=== PATIENT | female | born 1980 | race Caucasian/White ===

== ENCOUNTER → 2022-03-13 | Outpatient (CLI) | payer BC ==
--- NOTE | 2022-03-14 08:07 | MM ---
Reason for Exam: Screening (asymptomatic). Baseline mammogram. Patient History: Menarche at age 14. First Full-Term at age 33. Late child-bearing (after 30). Premenopausal. Patient has history of breast feeding. Last menstrual period: 02/26/2022 Risk Values: Syeda 5 year model risk: 0.8%. NCI Lifetime model risk: 13.5%. Prior Study Comparison: Patient's first Mammogram. Tissue Density: The breast tissue is extremely dense which could obscure a lesion on mammography. Findings: Analyzed By CAD. A few scattered small benign-appearing round calcifications bilaterally. Slightly more prominent loosely grouped small heterogeneous calcifications in the middle to posterior depth upper outer quadrant left breast warrant further workup. There is no distortion or suspicious mass in either breast. Overall Assessment: Incomplete: need additional imaging evaluation, BI-RAD 0 Management: Special View Mammogram of the left breast. Return for spot magnification and tomogram true lateral view left breast. Electronically signed and approved by: Peter Chang M.D.
== END | disposition home or self-care (01) ==
LOC: RADMAMWWP 06:51
PROVIDERS: ATTEND Family Medicine
DX: Z12.31 Encounter for screening mammogram for malignant neoplasm of breast (principal)
CPT/HCPCS: 77063; 77067

== ENCOUNTER → 2022-03-19 | Outpatient (CLI) | payer BC, OTHER ==
--- NOTE | 2022-03-26 08:40 | MM ---
Reason for Exam: Additional evaluation requested from abnormal screening. Last screening mammogram was performed less than 1 month ago. Patient History: Menarche at age 14. First Full-Term at age 33. Late child-bearing (after 30). Premenopausal. Patient has history of breast feeding. Risk Values: Syeda 5 year model risk: 0.8%. NCI Lifetime model risk: 13.5%. Prior Study Comparison: 03/13/2022 Bilateral MG 3D screening mammo w/cad, [facility]. Tissue Density: Left: The breast tissue is extremely dense which could obscure a lesion on mammography. Findings: Analyzed By CAD. Confirmation of loosely grouped heterogeneous calcifications in the posterior depth upper outer aspect left breast on additional views which do not layer. Overall Assessment: Suspicious, BI-RAD 4 Management: Stereotactic Core Biopsy of the left breast. Stereotactic core biopsy asymmetric left-sided calcifications. Results were given to the patient verbally at the time of exam by myself. Patient is agreeable to results and recommendation. Electronically signed and approved by: Peter Chang M.D.
== END | disposition home or self-care (01) ==
LOC: RADMAMWWP 21:29
PROVIDERS: ATTEND Family Medicine
DX: R92.8 Other abnormal and inconclusive findings on diagnostic imaging of breast (principal)
CPT/HCPCS: 77061; 77065

== ENCOUNTER → 2022-05-03 | Day surgery (SDC) | payer BC, OTHER ==
[2022-05-03 07:28] VITALS: RESP 16
--- NOTE | 2022-05-03 08:11 | P.GSHP ---
History of Present Illness H&P Date: 05/03/22 Chief Complaint: Abnormal left breast mammogram Katherine is a 42 -year-old white female seen in consultation for Dr. Tiburcio Ayala regarding mammographic abnormality in the left breast. She underwent a bilateral screening mammogram on [id number]. This revealed a few scattered small benign-appearing calcifications bilaterally. Slightly more prominent loose cecum heterogeneous calcifications in the middle to posterior upper outer quadrant of the left breast were identified and further workup was requested. Additional radiographs were performed on 9622 this revealed loosely grouped heterogeneous calcifications in the posterior depth upper outer aspect of the left breast for which stereotactic core biopsy was recommended. She does not feel any lumps masses or nodules of concern in either breast. This is her first mammogram. She's never had any surgery on her breast. She is not complaining of any recent trauma or infection in the breast. Caffeine: 2 cups coffee/day nicotine: none chocolate: occasional BCP: 14 years; stopped 7 years ago Family History: maternal grandmother: colon cancer paternal grandfather: prostate cancer Hormonal history: Menarche: 14 , breast fed: yes, age at first : 33 periods regular; LMP 10-- hormones: none Surgical History: 2 C-esections wisdom teeth Medical History: none thrombocytopenia during Social HIstory: nicotine: none alcohol: social; twice a week drugs: none : - Constitutional Constitutional: Denies chills, Denies fever - EENT Eyes: denies blurred vision, denies pain Ears: deny: decreased hearing, tinnitus Ears, nose, mouth and throat: Denies headache, Denies sore throat - Breasts Breasts: bilateral: as per HPI - Cardiovascular Cardiovascular: Denies chest pain, Denies shortness of breath - Respiratory Respiratory: Denies cough, Denies 7 - Gastrointestinal Gastrointestinal: Denies abdominal pain, Denies diarrhea, Denies nausea, Denies vomiting - Genitourinary (Female) Genitourinary: Denies dysuria, Denies hematuria - Menstruation Menstruation: Reports period normal - Musculoskeletal Musculoskeletal: Denies myalgias - Integumentary Integumentary: Denies pruritus, Denies rash - Neurological Neurological: Denies numbness, Denies weakness - Psychiatric Psychiatric: Denies anxiety, Denies depression - Endocrine Endocrine: Denies fatigue, Denies weight change - Hematologic/Lymphatic Comment: none - Allergic/Immunologic Allergic/Immunologic: Reports as per HPI Past Medical History Past Medical History: Blood Disorder Additional Past Medical History / Comment(s): thrombocytopenia during History of Any Multi-Drug Resistant Organisms: None Reported Past Surgical History: Section Additional Past Surgical History / Comment(s): wisdom teeth Past Anesthesia/Blood Transfusion Reactions: No Reported Reaction Past Psychological History: No Psychological Hx Reported Smoking Status: Never smoker Past Alcohol Use History: Occasional Past Drug Use History: None Reported - Past Family History Mother Family Medical History: No Reported History Medications and Allergies Home Medications Medication Instructions Recorded Confirmed Type L.acidoph,Paracasei, B.lactis 1 each PO DAILY 04/23/22 05/03/22 History [Probiotic] Multivitamin [Multivitamins Adult 1 each PO DAILY 04/23/22 05/03/22 History Gummies] Allergies Allergy/AdvReac Type Severity Reaction Status Date / Time No Known Allergies Allergy Verified 05/03/22 07:22 Surgical - Exam Vital Signs Temp Pulse Resp BP 98.0 F 83 16 129/76 05/03/22 07:23 05/03/22 07:23 05/03/22 07:23 05/03/22 07:23 BMI: 22.3 - General no distress - Neck trachea midline - Respiratory normal respiratory effort, clear to auscultation - Cardiovascular Rhythm: regular Heart Sounds: normal: S1, S2 - Abdomen Abdomen: soft, non tender, no guarding, no rigid, no rebound - Integumentary normal turgor - Neurologic no disoriented, no combative - Musculoskeletal normal gait, normal posture - Psychiatric oriented to time, oriented to person, oriented to place, speech is normal, memory intact Breast Exam: BRA: 34B Infection: Bilateral grade 1/2 ptosis Palpation: Right breast: Dense breast and multi positional exam no dominant masses or nodules of concern Right axilla: Shoddy adenopathy Left breast: Dense breast and multiple positional exam no dominant masses or nodules of concern Left axilla: Shoddy adenopathy Results Mammogram reviewed with Dr. Ramirez, scattered calcifications with some pleomorphism in the upper outer quadrant of the left breast Assessment and Plan Assessment: Impression: Abnormal left breast mammogram Dense breast Plan: Attempted stereotactic core biopsy, the patient's bra size is 34B and I'm uncertain as to whether we will be able to do a jig boring machine set up operator film to identify the calcifications of concern Stereotactic core biopsy risks include but are not limited to bleeding, infection, reaction to the anesthetic. If the tissue is not concordant it is possible that further tissue acquisition may be recommended. Alternatives such as watchful waiting or resection in the operating room I discussed but not recommended at this time. Patient understands and wishes to proceed. CC; Dr. King
[2022-05-03 09:21] VITALS: BP 100/64; PULSE 69; TEMP 98.1
--- NOTE | 2022-05-06 10:11 | MM ---
Date of Procedure: 05/03/22 Preoperative Diagnosis: Microcalcifications of concern upper outer quadrant left breast Postoperative Diagnosis: Same Procedure(s) Performed: Stereotactic core biopsy left breast upper outer quadrant Anesthesia: local Surgeon: Giovanna Licona Pathology: other (Radiograph of biopsy specimen left breast reveals microcalcifications of concern) Condition: stable Disposition: same day Indications for Procedure: Microcalcifications of concern left breast upper outer quadrant Operative Findings: Radiograph of specimen reveals microcalcifications of concern left breast Description of Procedure: Katherine is a 42-year-old white female who was seen in consultation regarding microcalcifications of concern in her left breast. This was reviewed with the radiologist Dr. Ramirez and elbow 2 areas were initially seen only one was felt to be necessary for biopsy. The patient was examined and no gross masses or nodules of concern were noted in either breast on physical exam. The risk and benefits of stereotactic core biopsy were discussed with the patient risk including but not limited to bleeding, infection, reaction to the anesthetic, the lesion pathology would be discordant possible further tissue acquisition would be necessary. The patient was given alternative such as watchful waiting resection in the operating room but these were not recommended and she opted for the stereotactic core biopsy. The patient was taken to the stereotactic core biopsy room. She was positioned prone on the lo-rad table. A lateral to medial approach was utilized. A call center support consultant film was obtained. The area of concern was identified. The lesion was targeted. The breast was prepped using Betadine. 20 mL of 1% lidocaine were used to anesthetize the area of concern. A 9-gauge vacuum-assisted core rotating biopsy needle was driven to the correct coordinates. Pre-fire film was obtained. The needle was noted to be in the correct location. The needle was fired, and a postoperative film confirm the needle be in the correct location. 13 core biopsy specimens were obtained. Radiograph of the specimens revealed the calcifications of concern had been adequately sampled. A secure marked Top- Hat clip was placed. This was noted to be in the correct location. The patient tolerated the procedure in stable condition. The specimen was sent to pathology. The patient will follow-up with Dr. Donaldson in approximately 10 days. [facility] CENTERMarvin
== END ==
LOC: RADMAMWWP 07:18
PROVIDERS: ATTEND Surgery
DX: N60.22 Fibroadenosis of left breast (principal); N63.21 Unspecified lump in the left breast, upper outer quadrant; N60.12 Diffuse cystic mastopathy of left breast; Z80.0 Family history of malignant neoplasm of digestive organs; Z98.891 History of uterine scar from previous surgery; Z86.59 Personal history of other mental and behavioral disorders; Z79.899 Other long term (current) drug therapy
CPT/HCPCS: 88305; 19081; J2001

== ENCOUNTER → 2022-05-03 | Outpatient (CLI) | payer BC, OTHER ==
[2022-05-03 08:02] VITALS: RESP 17
--- NOTE | 2022-05-03 14:51 | P.PCN ---
Date of Procedure: 05/03/22 Preoperative Diagnosis: Microcalcifications of concern upper outer quadrant left breast Postoperative Diagnosis: Same Procedure(s) Performed: Stereotactic core biopsy left breast upper outer quadrant Anesthesia: local Surgeon: Giovanna Licona Pathology: other (Radiograph of biopsy specimen left breast reveals microcalcifications of concern) Condition: stable Disposition: same day Indications for Procedure: Microcalcifications of concern left breast upper outer quadrant Operative Findings: Radiograph of specimen reveals microcalcifications of concern left breast Description of Procedure: Katherine is a 42-year-old white female who was seen in consultation regarding microcalcifications of concern in her left breast. This was reviewed with the radiologist Dr. Ramirez and elbow 2 areas were initially seen only one was felt to be necessary for biopsy. The patient was examined and no gross masses or nodules of concern were noted in either breast on physical exam. The risk and benefits of stereotactic core biopsy were discussed with the patient risk including but not limited to bleeding, infection, reaction to the anesthetic, the lesion pathology would be discordant possible further tissue acquisition would be necessary. The patient was given alternative such as watchful waiting resection in the operating room but these were not recommended and she opted for the stereotactic core biopsy. The patient was taken to the stereotactic core biopsy room. She was positioned prone on the lo-rad table. A lateral to medial approach was utilized. A cigar tobacco processing supervisor film was obtained. The area of concern was identified. The lesion was targeted. The breast was prepped using Betadine. 20 mL of 1% lidocaine were used to anesthetize the area of concern. A 9-gauge vacuum-assisted core rotating biopsy needle was driven to the correct coordinates. Pre-fire film was obtained. The needle was noted to be in the correct location. The needle was fired, and a postoperative film confirm the needle be in the correct location. 13 core biopsy specimens were obtained. Radiograph of the specimens revealed the calcifications of concern had been adequately sampled. A secure marked Top- Hat clip was placed. This was noted to be in the correct location. The patient tolerated the procedure in stable condition. The specimen was sent to pathology. The patient will follow-up with Dr. Donaldson in approximately 10 days.
== END | disposition home or self-care (01) ==
LOC: WWCWWP 06:56
PROVIDERS: ATTEND Surgery
DX: Z53.9 Procedure and treatment not carried out, unspecified reason (principal)

== ENCOUNTER → 2022-05-16 | Outpatient (CLI) | payer BC, OTHER ==
[2022-05-16 12:02] VITALS: BP 127/80; PULSE 71; RESP 17; TEMP 97.9
--- NOTE | 2022-05-16 12:33 | P.PN ---
Subjective Progress Note Date: 05/16/22 Principal diagnosis: fibrocystic breast changes Katherine is a 42 year old white female status post left breast ultrasound core biopsy on 05-03-22. She did have some swelling at the site of the biopsy. This is improving. She has not had any fever or chills. Objective - Vital Signs Vital signs: Vital Signs Temp 97.9 F 05/16/22 12:00 Pulse 71 05/16/22 12:00 Resp 17 05/16/22 12:00 BP 127/80 05/16/22 12:00 Pulse Ox 99 05/16/22 12:00 FiO2 Intake & Output 05/15/22 05/16/22 05/16/22 18:59 06:59 18:59 Weight 58.967 kg - Constitutional General appearance: Present: cooperative - EENT Eyes: Present: EOMI ENT: Present: hearing grossly normal - Neck Neck: Present: normal ROM - Respiratory Respiratory: bilateral: CTA - Cardiovascular Heart sounds: normal: S1, S2 - Integumentary Integumentary Comment(s): Breast biopsy site mild ecchymosis no evidence of infection Hematoma which is approximately 4 cm x 3 cm in size Integumentary: Present: normal turgor Assessment and Plan Assessment: Impression: Patient status post her tachycardia biopsy left breast/pathology benign calcifications in focal fibroadenomatoid hyperplasia Resolving hematoma Plan: Repeat left breast mammogram in 6 months Await radiologist report following stereotactic core biopsy CC: Dr. King
== END | disposition home or self-care (01) ==
LOC: WWCWWP 11:52
PROVIDERS: ATTEND Surgery
DX: Z53.9 Procedure and treatment not carried out, unspecified reason (principal)

== ENCOUNTER → 2022-11-08 | Outpatient (CLI) | payer OTHER ==
--- NOTE | 2022-11-08 08:58 | MM ---
Reason for Exam: Additional evaluation requested from prior study. Last screening mammogram was performed 8 month(s) ago. Patient History: Menarche at age 14. First Full-Term at age 33. Late child-bearing (after 30). Premenopausal. Patient has history of breast feeding. 05/03/2022, Benign MG stereo VAD BX LT on the left side. Last menstrual period: 10/17/2022 Risk Values: Syeda 5 year model risk: 1.3%. NCI Lifetime model risk: 16.3%. Prior Study Comparison: 03/13/2022 Bilateral MG 3D screening mammo w/cad, [facility]. 03/19/2022 Left MG 3D work up w/cad LT, [facility]. Tissue Density: Left: The breast tissue is heterogeneously dense. This may lower the sensitivity of mammography. Findings: Analyzed By CAD. Mammotome biopsy clip in the left breast upper outer aspect posteriorly is now seen. A few residual loosely grouped tiny calcifications in the left breast are redemonstrated. No suspicious new mass or group of microcalcifications in the left breast. Overall Assessment: Benign, BI-RAD 2 Management: Screening Mammogram of both breasts in 5 months. Back on annual schedule. Results were given to the patient verbally at the time of exam. Patient should continue monthly self-breast exams. A clinical breast exam by your physician is recommended on an annual basis. This exam should not preclude additional follow-up of suspicious palpable abnormalities. Note on Syeda scores and lifetime risk: 1. A Syeda score greater than 3% is considered moderate risk. If this is the case, consider specialist referral to assess eligibility for a risk reducing agent. 2. If overall lifetime risk for the development of breast cancer is 20% or higher, the patient may qualify for future screening with alternating mammogram and breast MRI. Electronically signed and approved by: Peter Chang M.D.
== END | disposition home or self-care (01) ==
LOC: RADMAMWWP 08:23
PROVIDERS: ATTEND Family Medicine
DX: R92.8 Other abnormal and inconclusive findings on diagnostic imaging of breast (principal); Z98.890 Other specified postprocedural states
CPT/HCPCS: 77061; 77065

== ENCOUNTER → 2024-05-21 | Outpatient (CLI) | payer OTHER ==
--- NOTE | 2024-05-28 12:17 | MM ---
Reason for Exam: Screening (asymptomatic). Last mammogram was performed 1 year(s) and 1 month(s) ago. Patient History: Menarche at age 14. First Full-Term at age 33. Late child-bearing (after 30). Premenopausal. Patient has history of breast feeding. 05/03/2022, Benign MG stereo VAD BX LT on the left side. Last menstrual period: 05/13/2024 Risk Values: Syeda 5 year model risk: 1.6%. NCI Lifetime model risk: 15.9%. Prior Study Comparison: 03/19/2022 Left MG 3D work up w/cad LT, [facility]. 11/08/2022 Left MG 3D diag mammo w/cad LT, [facility]. 04/28/2023 Bilateral MG 3D screening mammo w/cad, [facility]. Tissue Density: The breasts are heterogeneously dense, which may obscure small masses. Findings: Analyzed By CAD. Left breast biopsy clip. Right breast: There is no suspicious group of microcalcifications or new suspicious mass. Left breast: There is no suspicious group of microcalcifications or new suspicious mass. Overall Assessment: Negative, BI-RAD 1 Management: Screening Mammogram of both breasts in [address] [facility] will attempt to contact patient to return for supplemental views and ultrasound if indicated. Patient should continue monthly self-breast exams. A clinical breast exam by your physician is recommended on an annual basis. This exam should not preclude additional follow-up of suspicious palpable abnormalities. Note on Syeda scores and lifetime risk: 1. A Syeda score greater than 3% is considered moderate risk. If this is the case, consider specialist referral to assess eligibility for a risk reducing agent. 2. If overall lifetime risk for the development of breast cancer is 20% or higher, the patient may qualify for future screening with alternating mammogram and breast MRI. [facility], , 05/28/2024 12:14 PM. Electronically signed and approved by: Richard Ramirez DO
== END | disposition home or self-care (01) ==
LOC: RADMAMWWP 11:24
PROVIDERS: ATTEND Family Medicine
DX: Z12.31 Encounter for screening mammogram for malignant neoplasm of breast (principal); R92.333 Mammographic heterogeneous density, bilateral breasts
CPT/HCPCS: 77063; 77067